=== PATIENT | female | born 1990 | race Two or more races ===

== ENCOUNTER 2018-11-27 03:05 | Emergency (ER) | payer SELFPAY ==
[~2018-11-27] VITALS: Ht 162.6 cm; Wt 59.0 kg
--- NOTE | 2018-11-27 03:47 | NUR ---
BIB SELF FROM HOME. AAOX4. PT SOUND CONGESTED. AMBULATORY. C/O COUGH, CONGESTION, NON-PRODUCTIVE COUGH, EAR PAIN X 6 DAYS. PT REPORTS HAVING FEVER BUT AFEBRILE UPON PRESENTATION. SHE ALSO REPORT BEING NAUSEOUS. TO ER BED 9. MD AT BEDSIDE FOR EVAL.
[2018-11-27] MEDS ORDERED: ALBUTEROL FS 2.5 MG/3 ML VIAL.NEB ONE (03:52)
[2018-11-27 03:58] VITALS: BP 102/74
[2018-11-27] MEDS ORDERED: IBUPROFEN 600 MG TABLET PO ONE ×2 (03:59→04:00)
[2018-11-27] MEDS ORDERED: PSEUDOEPHEDRINE HCL 30 MG TABLET PO ONE (04:00)
[2018-11-27] MEDS ORDERED: ALBUTEROL FS 2.5 MG/3 ML VIAL.NEB NEB ONE (04:00)
--- NOTE | 2018-11-27 04:00 | NUR ---
RT AT BEDSIDE FOR TX
[2018-11-27] MEDS ORDERED: PSEUDOEPHEDRINE HCL 30 MG TABLET ONE (04:01)
--- NOTE | 2018-11-27 04:53 | NUR ---
Patient discharged to home in stable condition. Written and verbal after care instructions given. Patient verbalizes understanding of instruction. Pt ambulatory with a steady gait
== END 2018-11-27 04:55 | disposition home or self-care (01) ==
LOC: ER 03:07
DX: T70.0XXA Otitic barotrauma, initial encounter (principal); J06.9 Acute upper respiratory infection, unspecified; F17.200 Nicotine dependence, unspecified, uncomplicated; X58.XXXA Exposure to other specified factors, initial encounter